=== PATIENT | male | born 1975 | race Caucasian/White ===

== ENCOUNTER 2021-09-21 13:40 | Observation (INO) ==
[2021-09-21] MEDS ORDERED: Aspirin 81 MG TAB.CHEW PO ONE (13:56)
[2021-09-21] MEDS: Nitroglycerin 0.4 MG TAB.SUBL SL PRN ×2 (14:28→15:16)
[2021-09-21 14:49] LABS: Basophils % 0.3 %; Eosinophils % 0.6 %; Hemoglobin 16.2 g/dL (12.9-16.9); Immature Granulocytes % 0.3 % (0-4); Lymphocytes # 1.9 K/mcL (0.6-4.6); Lymphocytes % 29.2 %; Mean Corpuscular HGB Conc 35.2 g/dL (31.6-35.5); Mean Corpuscular Hemoglobin 31.7 pg (28.0-33.3); Mean Platelet Volume 11.2 fL (9.4-12.4); Monocytes # 0.7 K/mcL (0.0-1.3); Monocytes % 10.6 %; Neutrophils # 3.8 K/mcL (1.6-8.9); Platelet Count 176 K/mcL (140-400); Red Blood Count 5.11 M/mcL (4.19-5.50); Red Cell Distribution Width 12.1 % (11.5-14.5); White Blood Count 6.5 K/mcL (4.3-11.1)
[2021-09-21 15:02] LABS: INR 1.1; Prothrombin Time 12.3 Seconds (9.4-12.1)
[2021-09-21 15:04] LABS: Activated Partial Thrombo Time 32.4 Seconds (26.0-36.0)
[2021-09-21 15:08] LABS: BUN/Creatinine Ratio 9 (6-26); Blood Urea Nitrogen 10 mg/dL (6-20); Calcium 9.3 mg/dL (8.6-10.3); Carbon Dioxide 28 mEq/L (23-29); Chloride 103 mEq/L (98-107); Glucose 82 mg/dL (70-105); Osmolality,Calculated 284 (280-300); Potassium 3.8 mEq/L (3.5-5.1); Sodium 138 mEq/L (136-145); eGFR For African Americans > 60 (> 60); eGFR For Non-African Americans > 60 (> 60)
[2021-09-21 15:09] LABS: Troponin I < 0.03 ng/mL (< 0.04)
[2021-09-21 15:25] LABS: Influenza A PCR Negative (Negative); Influenza B PCR Negative (Negative); Resp. Syncytial Virus PCR Negative (Negative)
[2021-09-21 15:26] LABS: SARS-CoV-2 by PCR (In House) Negative (Negative)
[2021-09-21] MEDS ORDERED: 0.9 % Sodium Chloride 2,000 ML ONE (15:37)
[2021-09-21] MEDS ORDERED: *HR* Heparin 10,000 UNIT/10 ML VIAL ONE (15:37)
[2021-09-21] MEDS ORDERED: *HR* FentaNYL (PF) 100 MCG/2 ML VIAL ONE (15:37)
[2021-09-21] MEDS ORDERED: *HR* Midazolam HCl 5 MG/5 ML VIAL IVP ONE (15:37)
[2021-09-21] MEDS ORDERED: Heparin 1,000 UNITS/500 mL 500 ML ONE (15:37)
[2021-09-21] MEDS ORDERED: ISOVUE-370 200 ML INFUS..BTL ONE (15:37)
[2021-09-21] MEDS ORDERED: Nitroglycerin 1,000 MCG/5 ML VIAL IV ONE (15:38)
[2021-09-21] MEDS ORDERED: Naloxone 0.4 MG/ML INJ IVP PRN (17:35)
[2021-09-21] MEDS ORDERED: Perflutren Lipid Microsphere 1.3 ML in 0.9 % Sodium Chloride 8.7 ML IVP PRN (17:35)
[2021-09-22 04:49] LABS: Basophils % 0.5 %; Eosinophils # 0.1 K/mcL (0.0-0.6); Eosinophils % 1.5 %; Hematocrit 44.8 % (37.5-50.1); Hemoglobin 15.6 g/dL (12.9-16.9); Immature Granulocytes % 0.3 % (0-4); Lymphocytes # 2.3 K/mcL (0.6-4.6); Lymphocytes % 35.4 %; Mean Corpuscular HGB Conc 34.8 g/dL (31.6-35.5); Mean Corpuscular Hemoglobin 31.4 pg (28.0-33.3); Mean Corpuscular Volume 90.1 fL (83.0-100.0); Mean Platelet Volume 11.4 fL (9.4-12.4); Monocytes # 0.7 K/mcL (0.0-1.3); Monocytes % 10.5 %; Neutrophils # 3.4 K/mcL (1.6-8.9); Platelet Count 173 K/mcL (140-400); Red Blood Count 4.97 M/mcL (4.19-5.50); Red Cell Distribution Width 12.2 % (11.5-14.5); Segmented Neutrophils % 51.8 %; White Blood Count 6.6 K/mcL (4.3-11.1)
[2021-09-22 05:04] LABS: BUN/Creatinine Ratio 13 (6-26); Blood Urea Nitrogen 14 mg/dL (6-20); Carbon Dioxide 25 mEq/L (23-29); Chloride 106 mEq/L (98-107); Glucose 94 mg/dL (70-105); Osmolality,Calculated 282 (280-300); Potassium 4.1 mEq/L (3.5-5.1); Sodium 136 mEq/L (136-145); eGFR For African Americans > 60 (> 60); eGFR For Non-African Americans > 60 (> 60)
[2021-09-22 05:17] LABS: Thyroid Stimulating Hormone 5.219 mcIU/mL (0.340-5.600)
[2021-09-22 07:28] VITALS: TEMP 98
[2021-09-22] MEDS ORDERED: Aspirin Enteric Coated 81 MG Tablet PO SCH (09:00)
[2021-09-22 11:42] VITALS: BP 118/78; PULSE 51; O2SAT 98
== END 2021-09-22 16:25 | disposition home or self-care (01) ==
LOC: 3BNU 13:40 → EMEROOARM 13:40 → 3BNU 17:00 → SUATTDRO 17:09
PROVIDERS: ADMIT Student in an Organized Health Care Education/Training Program; ATTEND Family Medicine